=== PATIENT | male | born 1970 ===

== ENCOUNTER 2018-06-20 23:54 | Emergency (ER) | payer BC, OTHER ==
[2018-06-21 00:12] VITALS: TEMP 98.4
[2018-06-21] MEDS ORDERED: Sodium Chloride 0.9% 1,000 ML IV STA (01:02)
--- NOTE | 2018-06-21 01:25 | ED PDOC ---
HPI:Nausea, Vomiting, Diarrhea Time Seen by Provider: 06/21/18 00:20 Chief Complaint (Nursing): Abdominal Pain Chief Complaint (Provider): Nausea, decreased appetite History Per: Patient History/Exam Limitations: no limitations Onset/Duration Of Symptoms: Days (3) Current Symptoms Are (Timing): Still Present Associated Symptoms: Nausea, Loss Of Appetite. denies: Fever, Chills, Vomiting, Diarrhea, Back Pain, Chest Pain, Constipation, Urinary Symptoms Additional History Per: Patient Additional Complaint(s): 48yo male, otherwise well, comes to ER reporting abdominal discomfort as well as nausea and loss of appetite x 3 days. Patient states 3 nights ago, he had some burgers and wine, and the following day, he felt nauseous, has been retching but with no emesis, and states he has been unable to sleep. Patient also states he has been urinating infrequently, but attributes that to decreased fluid intake. Patient otherwise denies any fever, chills, chest pain, shortness of breath, vomiting, diarrhea, constipation, hematuira or dysuria. He has no additional complaints. PMD: Dr. Bryant Past Medical History Reviewed: Historical Data, Nursing Documentation, Vital Signs Vital Signs: Last Vital Signs Temp 98.4 F 06/21/18 00:09 Pulse 97 H 06/21/18 00:09 Resp 17 06/21/18 00:09 BP 150/105 H 06/21/18 00:09 Pulse Ox 99 06/21/18 00:09 - Medical History PMH: No Chronic Diseases - Surgical History Surgical History: No Surg Hx - Family History Family History: States: No Known Family Hx - Living Arrangements Living Arrangements: With Family - Social History Current smoker - smoking cessation education provided: No Alcohol: Occasional Drugs: Denies - Allergies Allergies/Adverse Reactions: Allergies Allergy/AdvReac Type Severity Reaction Status Date / Time No Known Allergies Allergy Verified 06/21/18 00:12 Review of Systems ROS Statement: Except As Marked, All Systems Reviewed And Found Negative Constitutional: Negative for: Fever, Chills Cardiovascular: Negative for: Chest Pain Respiratory: Negative for: Shortness of Breath Gastrointestinal: Positive for: Nausea, Abdominal Pain. Negative for: Vomiting, Diarrhea, Constipation Genitourinary Male: Negative for: Dysuria, Frequency, Hematuria Physical Exam - Reviewed Nursing Documentation Reviewed: Yes Vital Signs Reviewed: Yes - Physical Exam Appears: Positive for: Non-toxic, No Acute Distress Head Exam: Positive for: ATRAUMATIC, NORMAL INSPECTION, NORMOCEPHALIC Skin: Positive for: Normal Color Eye Exam: Positive for: EOMI, PERRL Neck: Positive for: Normal, Supple Cardiovascular/Chest: Positive for: Regular Rate, Rhythm Respiratory: Positive for: Normal Breath Sounds Gastrointestinal/Abdominal: Positive for: Normal Exam, Bowel Sounds, Soft. Negative for: Tenderness, Mass, Distended, Guarding, Rebound Back: Positive for: Normal Inspection Extremity: Positive for: Normal ROM. Negative for: Pedal Edema, Deformity Neurologic/Psych: Positive for: Alert, Oriented. Negative for: Motor/Sensory Deficits - Laboratory Results Result Diagrams: 06/21/18 01:30 06/21/18 01:30 - ECG O2 Sat by Pulse Oximetry: 99 (RA) Pulse Ox Interpretation: Normal Medical Decision Making Medical Decision Making: Impression: 48yo male with abdominal discomfort, likely viral Plan: -- Labs -- IV Fluids -- Zofran 4mg IV 0240 Labs reviewed, patient with elevated LFT's. CT Abdomen/Pelvis w/ IV contrast ordered. 0410 CT Abdomen/Pelvis Findings: Mild thickening of the proximal small bowel. The liver is of uniform attenuation without mass or defect. There is no intra or extrahepatic biliary ductal dilatation. The spleen is normal. Mild thickening of the gallbladder. The pancreas is of normal contour and attenuation characteristics. There is no evidence of adrenal mass. Both kidneys demonstrate prompt and equal nephrograms. The kidneys are normal in size, shape and configuration. There is no evidence of renal or ureteral mass. No renal or ureteral calculi are identified. There is no hydroureter or hydronephrosis. No evidence for appendicitis. There is no bowel wall thickening. No evidence for small or large bowel obstruction. There is no evidence of abdominal ascites or lymphadenopathy. There is no evidence of intrinsic or extrinsic bladder mass. There is no pelvic ascites or lymphadenopathy. Mild diffuse thickening of the bladder. Mild prostatomegaly. Images of the lung bases show no evidence of pleural or parenchymal mass. There are no pleural effusions. The bony structures are free of lytic or blastic lesions. Bilateral fat containing inguinal hernias without incarceration. IMPRESSION: Mild thickening of the proximal small bowel suspicious for mild enteritis. Mild diffuse thickening of the gallbladder, sonographic evaluation is suggested. Mild hepatic steatosis. 0445 Patient tolerated PO trial. pt aware of lab resutls. On reassessment, patient reports improvement in symptoms. Patient's abdomen remains soft and nontender; patient has normal heart and lung sounds. Patient stable for discharge home; patient instructed to follow up with PMD in 2-3 days. Scribe Attestation: Documented by Ninfa Marrero, acting as a scribe for Марина Lackey MD. Provider Scribe Attestation: All medical record entries made by the Scribe were at my direction and personally dictated by me. I have reviewed the chart and agree that the record accurately reflects my personal performance of the history, physical exam, medical decision making, and the department course for this patient. I have also personally directed, reviewed, and agree with the discharge instructions and disposition. Disposition - Clinical Impression Clinical Impression: Enteritis, Elevated liver function tests - Patient ED Disposition Is Patient to be Admitted: No Counseled Patient/Family Regarding: Studies Performed, Diagnosis, Need For Followup - Disposition Disposition: Routine/Home Disposition Time: 04:45 Condition: IMPROVED Additional Instructions: FOLLOW UP WITH YOUR PRIMARY DOCTOR IN 2 DAYS (DR BRYANT) RETURN TO THE ED WITH ANY WORSENING OR CONCERNING SYMPTOMS Instructions: Viral Gastroenteritis, Adult (DC) Forms: Mobile [employer]ulse (Spanish), [facility] ED School/Work Excuse
[2018-06-21 01:45] LABS: BASO # 0.1 K/uL (0.0-0.2); BASO % 0.5 % (0.0-2.0); EOS # 0.1 K/uL (0.0-0.7); EOS % 0.7 % (0.0-4.0); HEMOGLOBIN 16.7 g/dL (12.0-18.0); LYMPH # 1.4 K/uL (1.0-4.3); LYMPH % 14.3 % (20.0-40.0); MEAN CELL VOLUME 99.9 fl (80.0-94.0); MEAN CORPUSCULAR HEMOGLOBIN 33.5 pg (27.0-31.0); MEAN CORPUSCULAR HGB CONC 33.5 g/dL (33.0-37.0); MEAN PLATELET VOLUME 9.3 fl (7.2-11.7); MONO # 0.9 K/uL (0.0-0.8); MONO % 8.6 % (0.0-10.0); NEUT # 7.6 K/uL (1.8-7.0); NEUT % 75.9 % (50.0-75.0); NRBC % 0.1 % (0.0-0.0); RBC 4.99 Mil/uL (4.40-5.90); RED CELL DISTRIBUTION WIDTH 11.5 % (11.5-14.5)
[2018-06-21 01:53] LABS: ALB/GLOB RATIO 1.1 (1.0-2.1); BLOOD UREA NITROGEN 14 mg/dl (9-20); CALCIUM 10.1 mg/dL (8.4-10.2); GFR NON-AFRICAN AMERICAN > 60
[2018-06-21 02:01] LABS: ALT/SGPT 77 U/L (21-72); AST/SGOT 102 U/L (17-59)
[2018-06-21] MEDS ORDERED: Sodium Chloride 0.9% 50 ML IV ONE (03:00)
[2018-06-21] MEDS ORDERED: Iohexol 300 100 ML IJ ONE (03:00)
[2018-06-21 04:26] LABS: URINE BACTERIA RARE (<OCC); URINE BILIRUBIN NEGATIVE (NEGATIVE); URINE BLOOD NEGATIVE (NEGATIVE); URINE CLARITY CLOUDY (Clear); URINE COLOR AMBER (YELLOW); URINE GLUCOSE (UA) NEG (NEGATIVE); URINE LEUKOCYTE ESTERASE NEG Leu/uL (Negative); URINE PROTEIN 30 mg/dL (NEGATIVE)
[2018-06-21 04:46] VITALS: BP 145/90; PULSE 90; RESP 24
--- NOTE | 2018-06-21 14:42 | CT ---
Date of service: 06/21/2018 PROCEDURE: CT Abdomen and Pelvis with contrast HISTORY: nausea, elebated lfts COMPARISON: None available. TECHNIQUE: CT scan of the abdomen and pelvis was performed after administration of intravenous contrast. Oral contrast was not administered. Coronal and sagittal reformatted images were obtained. Contrast dose: 90 mL Omnipaque 300 Radiation dose: Total exam DLP = 277.53 mGy-cm. This CT exam was performed using one or more of the following dose reduction techniques: Automated exposure control, adjustment of the mA and/or kV according to patient size, and/or use of iterative reconstruction technique. FINDINGS: LOWER THORAX: The visualized lungs are clear. LIVER: Normal in size and diffuse fatty liver. No gross lesion or ductal dilatation. GALLBLADDER AND BILE DUCTS: Well distended. No calcified gallstones, wall thickening or pericholecystic fluid. PANCREAS: Normal in size with homogeneous enhancement. No gross lesion or ductal dilatation. SPLEEN: Normal in size and appearance. ADRENALS: No discrete nodule. KIDNEYS AND URETERS: Normal in size with homogeneous enhancement. No hydronephrosis. No solid mass. VASCULATURE: No aortic aneurysm. BOWEL: Evaluation of the bowel is limited in the absence of oral contrast. There is mild dilatation of fluid-filled proximal small bowel loops. Fluid-filled mid and distal small bowel loops are normal in caliber. The ileocecal junction is normal. There is fluid in the ascending colon. There is left colonic diverticulosis without CT evidence for acute diverticulitis.. The colon is grossly normal in appearance. No bowel wall thickening or obstruction. APPENDIX: Normal appendix. PERITONEUM: No free fluid. No free air. LYMPH NODES: No enlarged lymph nodes. BLADDER: Partially decompressed. REPRODUCTIVE: The prostate gland is normal in size. BONES: No acute fracture. Within normal limits for the patient's age. OTHER FINDINGS: None. IMPRESSION: Fluid-filled mildly dilated proximal small bowel loops and fluid in normal caliber mid and distal small bowel loops and ascending colon. Findings could represent nonspecific acute infectious/inflammatory enterocolitis. Developing mid small bowel obstruction cannot be entirely excluded. Clinical follow-up is advised.
[2018-06-22 04:49] VITALS: O2SAT 99
== END 2018-06-21 05:26 | disposition home or self-care (01) ==
LOC: H.ER 23:54
DX: K52.9 Noninfective gastroenteritis and colitis, unspecified (principal); R94.5 Abnormal results of liver function studies; N40.0 Benign prostatic hyperplasia without lower urinary tract symptoms
CPT/HCPCS: 74177; 80053; 81003; 85025; 87086; 96360; 99283; J2405; J7030; Q9967